=== PATIENT | male | born 1955 | race Caucasian/White ===

== ENCOUNTER 2018-07-18 09:04 | Outpatient (CLI) | payer BC ==
--- NOTE | 2018-07-18 10:59 | RAD ---
LUMBAR SPINE THREE VIEWS: History: Spondylosis of the lumbar region. History of prior back surgery in 2016 with low back pain r adiating down both hips and legs. FINDINGS: Evidence for laminectomy at L3 and L4 with a markedly narrowed L3-4 disc with sclerosis and eburnatio n and prominent disc osteophytosis with mild retrolisthesis but no abnormal translation between flexi on and extension. Generalized spondylosis. No acute fracture. IMPRESSION: Post-operative changes with marked disc space narrowing at L3-4 with considerable sclerosis and eburn ation with mild stable retrolisthesis. No abnormal translation between flexion and extension. General ized spondylosis. No acute fracture or dislocation. POS: [facility]
--- NOTE | 2018-07-18 12:17 | MRI ---
MRI LUMBAR SPINE WITHOUT CONTRAST: Date: 07/18/18 HISTORY: M47.816 spondylosis of the lumbar region. COMPARISON: None. FINDINGS: There is focal dilatation of the infrarenal abdominal aorta at the level of L3 measuring up to 3.5 cm . Prior laminectomy change at L3 and L4. Mild straightening of the lumbar spine. There is abnormal edema in the L3 and L4 vertebral bodies. Th ere are also Modic Type I end plate changes of L5-S1. The levels are as follows: L1-2: There is a large circumferential disc bulge. Moderate facet arthropathy. The disc bulge is wor se in the right subforaminal and extraforaminal zones. There is severe right-sided neural foraminal n arrowing and moderate left-sided neural foraminal narrowing. There is also increased posterior epidur al fat. Spinal canal is compromised, narrowed to 3.0 mm. L2-3: Large circumferential disc bulge. Severe facet arthropathy. Moderate to severe bilateral neura l foraminal narrowing. There is also narrowing of the spinal canal to approximately 5.0 mm. L3-4: There is edema within the disc space. Circumferential disc osteophyte complex, large. There is severe left and moderate to severe right-sided neural foraminal narrowing. Laminectomy changes. Scar posterior epidural space. L4-5: Large circumferential disc bulge. Severe facet arthropathy. Moderate effusion within the right facet joint. There is severe bilateral neural foraminal narrowing. Laminectomy change. L5-S1: Severe degenerative disc space height loss. Circumferential disc osteophyte complex. Moderate facet arthropathy. Severe right and moderate to severe left-sided neural foraminal narrowing. IMPRESSION: 1. Multilevel severe neural foraminal narrowing due to multilevel circumferential disc bulges. 2. Abnormal edema in the L3 and L4 vertebral bodies which are felt to represent Modic changes from i ncreased motion due to prior laminectomies. Underlying diskitis and osteomyelitis is felt somewhat le ss likely due to lack of end plate destruction. Follow-up study with contrast may be beneficial in 2- 3 months depending on symptomatology. Recommend correlation with patient's inflammatory markers. POS: [facility]
== END 2018-07-18 09:05 | disposition home or self-care (01) ==
LOC: SCSMRI 09:04
PROVIDERS: ATTEND Nurse Practitioner Family
DX: M47.816 Spondylosis without myelopathy or radiculopathy, lumbar region (principal); M43.16 Spondylolisthesis, lumbar region; M48.061 Spinal stenosis, lumbar region without neurogenic claudication; M51.86 Other intervertebral disc disorders, lumbar region; Z98.890 Other specified postprocedural states
CPT/HCPCS: 72100; 72148

== ENCOUNTER 2020-05-07 06:26 | Outpatient (CLI) | payer BC, MEDICARE ==
[2020-05-07 10:53] LABS: Anion Gap 14 mmol/L (10-20); BUN (Urea Nitrogen) 13 mg/dL (8.4-25.7); Calc. Creatinine Clearance 0 mL/min (70-130); Calcium 9.3 mg/dL (7.8-10.44); Carbon Dioxide 25 mmol/L (23-31); Chloride 102 mmol/L (98-107); Glucose 112 mg/dL (80-115); Sodium 137 mmol/L (136-145)
[2020-05-07 18:24] LABS: SARS-CoV-2 MS2 Positive; SARS-CoV-2 N Gene Negative; SARS-CoV-2 S Gene Negative; SARS-CoV-2 by NAA Not Detected (NotDetected); SARS-CoV-2 orf1ab Negative
== END 2020-05-07 06:27 | disposition home or self-care (01) ==
LOC: LABBT 06:26
PROVIDERS: ATTEND Neurological Surgery
DX: Z01.812 Encounter for preprocedural laboratory examination (principal); Z20.828 Contact with and (suspected) exposure to other viral communicable diseases; M48.061 Spinal stenosis, lumbar region without neurogenic claudication
CPT/HCPCS: 80048; 87635; U0003

== ENCOUNTER 2020-05-10 05:28 | Day surgery (SDC) | payer BC, MEDICARE ==
[2020-05-09 12:50] VITALS: BMI 29.8
--- NOTE | 2020-05-09 12:59 | HP ---
HISTORY OF PRESENT ILLNESS: Mr. Edwards is a 64-year-old man, known to us for multiple prior evaluations and surgeries for low back problems. He returns now with significant radicular pain in a bilateral L5 and S1 fashion. He has a new MRI and CT scan that reveals significant lateral recess stenosis at the L4-5 level, but also foraminal stenosis at L5 secondary to collapse of the interpedicular space bilaterally. He does also have degenerative disk disease at both levels. He has received injections for these problems and while they initially helped they continued to lose efficacy each time. He has to discuss more definitive management. PAST MEDICAL HISTORY: Hypertension. PAST SURGICAL HISTORY: Lumbar decompression. MEDICATIONS: 1. Toprol. 2. Procardia. 3. Dyazide. 4. Viagra. ALLERGIES: NO KNOWN DRUG ALLERGIES. PHYSICAL EXAMINATION: Deferred for telehealth visit. ASSESSMENT: Lumbar radiculopathy. PLAN: Dr. Sorto met with the patient, reviewed imaging, advocated for L4-S1 decompression and L5-S1 posterolateral instrumentation and fusion. He explained the patient risks, benefits, and alternatives to the procedure. The patient expressed understanding and elected to move forward with surgery as discussed. I do believe the patient is mentally competent and capable of making medical decisions for himself. We will move forward with surgery as planned. Job ID: [id number]
[2020-05-10] MEDS ORDERED: Thrombin 5000 UNITS/5 ML VIAL ONE (06:18)
[2020-05-10] MEDS ORDERED: Bupivacaine PF 0.5% 30 ML VIAL ONE (06:18)
[2020-05-10] MEDS ORDERED: EPINEPHrine 1 MG/ML AMP ONE (06:18)
[2020-05-10] MEDS ORDERED: Fentanyl 250 MCG/5 ML VIAL ONE (06:32)
[2020-05-10] MEDS ORDERED: Midazolam HCl 2 mg/2 ml Vial ONE (06:44)
[2020-05-10] MEDS ORDERED: ePHEDrine 50 MG/ML VIAL ONE (09:48)
[2020-05-10] MEDS ORDERED: Ondansetron PF 4 MG/2 ML Vial ONE (09:48)
[2020-05-10] MEDS ORDERED: Rocuronium Bromide 10 MG/ML (10ML VIAL) ONE (09:48)
[2020-05-10] MEDS ORDERED: PROPOFOL 200 MG/20 ML VIAL ONE (09:48)
[2020-05-10] MEDS ORDERED: Glycopyrrolate 0.2 MG/ML 5 ML SYRINGE ONE (09:48)
[2020-05-10] MEDS ORDERED: Dexamethasone 20 MG/5 ML VIAL ONE (09:48)
[2020-05-10] MEDS ORDERED: Lidocaine 1% PF 5 ML VIAL ONE (09:48)
[2020-05-10] MEDS ORDERED: Vecuronium 10 MG VIAL ONE (09:48)
--- NOTE | 2020-05-10 10:37 | OP ---
DATE OF PROCEDURE: 05/10/2020 DEPUTY COMMISSIONER: Josh Tomlinson PA-C INDICATION: Pain. DIAGNOSIS: Lumbar stenosis, low back pain, and lumbar radiculopathy. PROCEDURES PERFORMED: Reoperation L4-S1 decompression, L5-S1 posterior lateral instrumented fusion, placement of allograft, and placement of autograft. ANESTHESIA: General. DESCRIPTION OF PROCEDURE: The patient was brought into the operating room and placed under general anesthesia. He was flipped from the supine to prone position on the operating room table. A linear incision was planned at the location of a prior incision over L4 spanning down to S1. After prepping and draping and after an appropriate preoperative pause, the incision was created. The soft tissues were swept away from midline. Self-retaining retractors were placed. A C-arm image was obtained to confirm the appropriate level. Adson rongeur as well as Kerrison and the high-speed cutting drill bit were used to complete a more extensive laminectomy at L4-L5. Laminectomy was extended inferiorly to encompass L5-S1. The laminectomy was extended bilaterally to decompress the lateral recesses. After the pedicles were exposed at L5 and S1, pedicle screws were placed with the aid of C-arm fluoroscopy. An intraoperative 3D CT scan was then performed to confirm appropriate placement of hardware. Rods were then placed across the screw heads and final tightened. Allograft and autograft material were then placed in the lateral confines of the instrumentation construct. The wound was irrigated. Hemostasis was maintained throughout. The wound was then closed in anatomic layers, and a pressure dressing was applied. There were no known procedural complications. Job ID: [id number]
[2020-05-10] MEDS ORDERED: Tamsulosin HCl 0.4 MG CAP ONE (10:52)
[2020-05-10] MEDS ORDERED: Fentanyl 100 MCG/2 ML VIAL ONE (11:18)
== END 2020-05-10 14:15 | disposition home or self-care (01) ==
LOC: SDC 05:28
PROVIDERS: ATTEND Neurological Surgery
PROC: 0SG30AJ Fusion of Lumbosacral Joint with Interbody Fusion Device, Posterior Approach, Anterior Column, Open Approach (ICD-10-PCS; principal; 2020-05-10)
DX: M48.062 Spinal stenosis, lumbar region with neurogenic claudication (principal); M54.16 Radiculopathy, lumbar region
CPT/HCPCS: 76000; C1713; C1768; J0171; J0690; J1100; J2250; J2405; J2704; J3010; J3490; S0020

== ENCOUNTER 2021-05-26 09:50 | Outpatient (CLI) | payer BC, MEDICARE ==
[2021-05-26 11:50] LABS: Anion Gap 11 mmol/L (10-20); BUN (Urea Nitrogen) 10 mg/dL (8.4-25.7); Calc. Creatinine Clearance 0 mL/min (70-130); Calcium 9.3 mg/dL (7.8-10.44); Carbon Dioxide 26 mmol/L (23-31); Chloride 102 mmol/L (98-107); Glucose 108 mg/dL (80-115); Potassium 4.3 mmol/L (3.5-5.1); Sodium 135 mmol/L (136-145)
[2021-05-26 22:25] LABS: SARS-CoV-2 PCR by NAA Not Detected (NotDetected)
== END 2021-05-26 09:51 | disposition home or self-care (01) ==
LOC: LABBT 09:50
PROVIDERS: ATTEND Neurological Surgery
DX: Z01.818 Encounter for other preprocedural examination (principal); M51.36 Other intervertebral disc degeneration, lumbar region; M54.50 Low back pain, unspecified; Z20.822 Contact with and (suspected) exposure to COVID-19
CPT/HCPCS: 80048; 93005; 93010; U0003; U0005

== ENCOUNTER 2021-05-29 06:44 | Day surgery (SDC) | payer BC, MEDICARE ==
[2021-05-26 12:33] VITALS: BMI 29.1
[2021-05-29] MEDS ORDERED: EPINEPHrine 1 MG/ML AMP ONE (07:09)
[2021-05-29] MEDS ORDERED: Bupivacaine PF 0.5% 30 ML VIAL ONE (07:09)
[2021-05-29] MEDS ORDERED: Thrombin 5000 UNITS/5 ML VIAL ONE (07:09)
[2021-05-29] MEDS ORDERED: ceFAZolin 2 GM/DEX 5% 100 ML BAG ONE ×5 (07:14→14:43)
[2021-05-29] MEDS ORDERED: Fentanyl 100 MCG/2 ML VIAL ONE (08:16)
[2021-05-29] MEDS ORDERED: Ondansetron PF 4 MG/2 ML Vial ONE (08:37)
[2021-05-29] MEDS ORDERED: Dexamethasone 20 MG/5 ML VIAL ONE (08:37)
[2021-05-29] MEDS ORDERED: PROPOFOL 200 MG/20 ML VIAL ONE (08:37)
[2021-05-29] MEDS ORDERED: ePHEDrine 50 MG/ML VIAL ONE (08:37)
[2021-05-29] MEDS ORDERED: Lidocaine 1% PF 5 ML VIAL ONE (08:37)
[2021-05-29] MEDS ORDERED: Rocuronium Bromide 10 MG/ML (10ML VIAL) ONE (08:37)
[2021-05-29] MEDS ORDERED: HYDROmorphone 2 MG/ML VIAL ONE (11:25)
[2021-05-29] MEDS ORDERED: SUGAMMADEX SODIUM 200 MG/2 ML VIAL ONE (11:28)
[2021-05-29] MEDS ORDERED: Tamsulosin HCl 0.4 MG CAP ONE (11:57)
[2021-05-29] MEDS ORDERED: HYDROcodone/Acetaminophen 5/325 mg Tablet ONE ×2 (12:33→16:14)
== END 2021-05-29 16:48 | disposition home or self-care (01) ==
LOC: SDC 06:44
PROVIDERS: ATTEND Neurological Surgery
PROC: 0QJY0ZZ Inspection of Lower Bone, Open Approach (ICD-10-PCS; principal; 2021-05-29)
PROC: 0SG00J1 Fusion of Lumbar Vertebral Joint with Synthetic Substitute, Posterior Approach, Posterior Column, Open Approach (ICD-10-PCS; principal; 2021-05-29)
DX: M51.16 Intervertebral disc disorders with radiculopathy, lumbar region (principal); M48.061 Spinal stenosis, lumbar region without neurogenic claudication; I10 Essential (primary) hypertension; Z79.82 Long term (current) use of aspirin; Z79.899 Other long term (current) drug therapy; Z98.1 Arthrodesis status
CPT/HCPCS: 76000; C1713; C1768; J0171; J1100; J1170; J2405; J2704; J3010; J3490; S0020

== ENCOUNTER 2024-04-04 09:42 | Emergency (ER) | payer BC, MEDICARE | END 2024-04-04 10:26 | disposition short-term general hospital (02) | LOC: ERS 09:42 | DX: I25.42 Coronary artery dissection (principal); I48.91 Unspecified atrial fibrillation; I10 Essential (primary) hypertension | CPT/HCPCS: 99284 ==